=== PATIENT | male | born 1980 | race Two or more races ===

== ENCOUNTER 2017-04-16 07:43 | Emergency (ER) | payer MEDICARE, MEDICAID ==
[2017-04-16 07:55] VITALS: BP 154/95
--- NOTE | 2017-04-16 08:41 | EDM.PDOC ---
ED HPI GENERAL MEDICAL PROBLEM - General Chief Complaint: Respiratory Problem Stated Complaint: COUGH FOR 3X WKS Time Seen by Provider: 04/16/17 07:55 Source of Information: Reports: Patient History Limitations: Reports: No Limitations - History of Present Illness INITIAL COMMENTS - FREE TEXT/NARRATIVE: 37-year-old male with a persistent cough for 3 weeks, worsening to the point where he is having difficulty eating because he coughs so hard he vomits. No fevers or chills, no significant production. He is smoking. No exposure to someone else with similar symptoms. No recent travel. Onset: Gradual (Over the past 3 weeks) Severity: Moderate Associated Symptoms: Reports: Nausea/Vomiting, Shortness of Breath. Denies: Confusion, Chest Pain, Fever/Chills, Weakness - Related Data Allergies Allergy/AdvReac Type Severity Reaction Status Date / Time tramadol Allergy Mild Rash Verified 08/08/14 01:56 *Another pain medication Allergy Rash Uncoded 08/08/14 01:56 Home Meds: Home Meds Brimonidine Tartrate 1 drop EYEBOTH BID 08/08/14 [History] Ibuprofen 800 mg PO TID PRN 08/08/14 [History] Latanoprost 1 drop EYEBOTH DAILY 08/08/14 [History] Timolol Maleate 1 drop EYEBOTH BID 08/08/14 [History] Methocarbamol [Methocarbamol] 500 mg PO ASDIRECTED PRN 04/16/17 [History] Past Medical History HEENT History: Reports: Glaucoma, Impaired Vision, Other (See Below) 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 Respiratory History: Reports: Asthma Gastrointestinal History: Reports: GERD Musculoskeletal History: Reports: Back Pain, Chronic, Fracture Neurological History: Reports: Concussion, Head Trauma Psychiatric History: Reports: ADHD, PTSD - Past Surgical History HEENT Surgical History: Reports: Oral Surgery Other Musculoskeletal Surgeries/Procedures:: partial amputation of the left arm Social & Family History - Tobacco Use Smoking Status *Q: Current Every Day Smoker Years of Tobacco use: 34 Packs/Tins Daily: 0.2 Used Tobacco, but Quit: No Second Hand Smoke Exposure: No - Caffeine Use Caffeine Use: Reports: Coffee, Energy Drinks, Soda, Tea - Alcohol Use Days Per Week of Alcohol Use: 0 - Recreational Drug Use Recreational Drug Use: No ED ROS GENERAL - Review of Systems Review Of Systems: See Below Constitutional: Reports: Malaise. Denies: Fever, Chills HEENT: Denies: Throat Pain Respiratory: Reports: Shortness of Breath, Cough. Denies: Sputum Cardiovascular: Denies: Chest Pain GI/Abdominal: Reports: Nausea, Vomiting. Denies: Abdominal Pain Skin: Reports: No Symptoms Neurological: Denies: Headache ED EXAM, GENERAL - Physical Exam Exam: See Below Exam Limited By: No Limitations General Appearance: Alert, No Apparent Distress Throat/Mouth: Other (Advanced dental decay) Respiratory/Chest: No Respiratory Distress, Lungs Clear, Other (Despite clear lungs he did have several intense coughing spells while in the emergency room) Cardiovascular: Regular Rate, Rhythm Neurological: Alert, Oriented Skin Exam: Warm, Dry Course - Vital Signs Last Recorded V/S: Last Vital Signs Temp 97.0 F 04/16/17 07:50 Pulse 68 04/16/17 07:50 Resp 18 04/16/17 07:50 BP 154/95 H 04/16/17 07:50 Pulse Ox 96 04/16/17 07:50 - Orders/Labs/Meds Orders: Active Orders 24 hr Category Date Time Status Chest 2V [CR] Routine Exams 04/16/17 08:16 Taken - Re-Assessments/Exams Free Text/Narrative Re-Assessment/Exam: 04/16/17 08:39 A two-view chest x-ray was obtained which is normal. Explained to the patient that he has lingering bronchitis, it may be atypical, viral, or even allergy related. I'm going to supply him with some benzonatate Perles for cough suppression, put him on 60 mg of prednisone daily for 5 consecutive days and a course of Zithromax. Encouraged him to decrease his smoking and recheck in 4-5 days if not improving satisfactorily. Departure - Departure Time of Disposition: 08:44 Disposition: Home, Self-Care 01 Condition: Good Clinical Impression: Bronchitis - Discharge Information Instructions: Acute Bronchitis, [id number] Referrals: PCP,None [Primary Care Provider] - Forms: ED Department Discharge Care Plan Goals: Take 6 pills of prednisone with your first meal daily for 5 days in a row. Take the Zithromax as prescribed and the cough suppressant pills as needed. Consider rechecking in 4-6 days if not improving satisfactorily. - My Orders Last 24 Hours: My Active Orders 04/16/17 08:16 Chest 2V [CR] Routine - Assessment/Plan Last 24 Hours: My Active Orders 04/16/17 08:16 Chest 2V [CR] Routine
--- NOTE | 2017-04-18 08:58 | CR ---
Chest 2V HISTORY: Dyspnea. COMPARISON: None FINDINGS: Cardiac size and pulmonary vessels normal. There are no infiltrates or effusions. No pneumo thorax. The osseous structures appear normal. IMPRESSION: No acute pulmonary disease.
== END 2017-04-16 08:44 | disposition home or self-care (01) ==
LOC: JP.ED 07:43
DX: J40 Bronchitis, not specified as acute or chronic (principal); J45.909 Unspecified asthma, uncomplicated; K21.9 Gastro-esophageal reflux disease without esophagitis; F90.9 Attention-deficit hyperactivity disorder, unspecified type; F43.10 Post-traumatic stress disorder, unspecified; F17.210 Nicotine dependence, cigarettes, uncomplicated; Z79.899 Other long term (current) drug therapy; Z88.5 Allergy status to narcotic agent
CPT/HCPCS: 71020; 71020-26; 99283; 99284

== ENCOUNTER 2017-05-01 08:38 | Emergency (ER) | payer MEDICARE, MEDICAID ==
[2017-05-01 08:53] VITALS: BP 143/101
--- NOTE | 2017-05-01 09:26 | EDM.PDOC ---
ED HPI GENERAL MEDICAL PROBLEM - General Chief Complaint: Respiratory Problem Stated Complaint: COUGH Time Seen by Provider: 05/01/17 08:58 Source of Information: Reports: Patient, Old Records, RN Notes Reviewed History Limitations: Reports: No Limitations - History of Present Illness INITIAL COMMENTS - FREE TEXT/NARRATIVE: 37-year-old gentleman presents emergency department today for complaint of cough , he has had cough for now 6 weeks he has been to the emergency department and to his primary care provider for multiple visits of this cough review of the past shows on 16 April was evaluated emergency department at which time he received a chest x-ray which was negative azithromycin and prednisone, his cough continued was evaluated on 04-20 by primary care started on Symbicort and albuterol, continued having difficulty with cough to the point of being short of breath secondary to the cough and shortness of breath on exertion was reevaluated on 04-26 and primary care given another 5 day course of prednisone in combination with Claritin he presents today with ongoing cough no significant sputum production no fevers or chills no chest pain no GI symptomatology he has heard wheezing in the past but the cough will be so intense at times he'll be close to emesis and is extremely short of breath. He does have a past medical history of exercise- induced asthma, gastroesophageal reflux disease controlled with omeprazole - Related Data Allergies Allergy/AdvReac Type Severity Reaction Status Date / Time tramadol Allergy Mild Rash Verified 08/08/14 01:56 *Another pain medication Allergy Rash Uncoded 08/08/14 01:56 Home Meds: Home Meds Brimonidine Tartrate 1 drop EYEBOTH BID 08/08/14 [History] Ibuprofen 800 mg PO TID PRN 08/08/14 [History] Latanoprost 1 drop EYEBOTH DAILY 08/08/14 [History] Timolol Maleate 1 drop EYEBOTH BID 08/08/14 [History] Methocarbamol [Methocarbamol] 500 mg PO ASDIRECTED PRN 04/16/17 [History] Past Medical History HEENT History: Reports: Glaucoma, Impaired Vision, Other (See Below) 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 Respiratory History: Reports: Asthma Gastrointestinal History: Reports: GERD Musculoskeletal History: Reports: Back Pain, Chronic, Fracture Neurological History: Reports: Concussion, Head Trauma Psychiatric History: Reports: ADHD, PTSD - Past Surgical History HEENT Surgical History: Reports: Oral Surgery Other Musculoskeletal Surgeries/Procedures:: partial amputation of the left arm Social & Family History - Tobacco Use Smoking Status *Q: Heavy Tobacco Smoker Years of Tobacco use: 20 Packs/Tins Daily: 0.5 Used Tobacco, but Quit: No Second Hand Smoke Exposure: No - Caffeine Use Caffeine Use: Reports: Coffee, Energy Drinks, Soda - Alcohol Use Days Per Week of Alcohol Use: 0 - Recreational Drug Use Recreational Drug Use: No ED ROS GENERAL - Review of Systems Review Of Systems: See Below Constitutional: Denies: Fever, Chills HEENT: Reports: No Symptoms Respiratory: Reports: Shortness of Breath, Wheezing, Cough. Denies: Sputum Cardiovascular: Reports: No Symptoms GI/Abdominal: Reports: No Symptoms : Reports: No Symptoms Musculoskeletal: Reports: No Symptoms Skin: Reports: No Symptoms ED EXAM, GENERAL - Physical Exam Exam: See Below Free Text/Narrative:: General: Male, not in any distress, alert and oriented x3 HEENT: head is atraumatic normocephalic, eyes pupils equal round sclera clear no conjunctivitis appreciated. Ears tympanic membranes clear and blum landmarks and light reflex are present bilaterally canals are clear. Nose no septal deviation, nares are clear, no blood present. Mouth mucosa is moist and pink no erythema or exudate noted in soft palate, tongue is midline uvula is midline , dentition is poor. Neck: Supple no thyromegaly no tracheal deviation. Nodes: Cervical nodes subclavicular nodes nontender no palpable lymphadenopathy noted. Lungs: clear to auscultation bilaterally with symmetrical respirations, no adventitious noise appreciated. CV: Regular rate and rhythm S1 and S2 appreciated no murmurs rubs or gallops noted. Abdomen: Soft, nontender, no palpable masses or organomegaly appreciated, no distention no guarding bowel sounds are present,. Neuro: Cranial nerves II through XII grossly intact Skin: Warm and dry, intact Course - Vital Signs Last Recorded V/S: Last Vital Signs Temp 96.3 F 05/01/17 08:52 Pulse 61 05/01/17 08:52 Resp 18 05/01/17 08:52 BP 143/101 H 05/01/17 08:52 Pulse Ox 97 05/01/17 08:52 - Orders/Labs/Meds Orders: Active Orders 24 hr Category Date Time Status B PERTUSSIS IGG/M/A AB [REF] Routine Lab 05/01/17 09:22 Received Labs: Laboratory Tests 05/01/17 05/01/17 05/01/17 Range/Units 09:22 09:22 09:22 WBC 9.5 (4.5-11.0) K/uL RBC 5.09 (4.30-5.90) M/uL Hgb 14.7 (12.0-15.0) g/dL Hct 43.4 (40.0-54.0) % MCV 85 (80-98) fL MCH 29 (27-31) pg MCHC 34 (32-36) % Plt Count 358 (150-400) K/uL Neut % (Auto) 55 (36-66) % Lymph % (Auto) 33 (24-44) % [place] % (Auto) 9 H (2-6) % Eos % (Auto) 2 (2-4) % Baso % (Auto) 1 (0-1) % Sodium 142 (140-148) mmol/L Potassium 3.8 (3.6-5.2) mmol/L Chloride 106 (100-108) mmol/L Carbon Dioxide 29 (21-32) mmol/L Anion Gap 7.2 (5.0-14.0) mmol/L BUN 19 H D (7-18) mg/dL Creatinine 1.0 (0.8-1.3) mg/dL Est Cr Clr Drug Dosing 124.99 mL/min Estimated GFR (MDRD) > 60 (>60) Glucose 112 H (74-106) mg/dL Lactic Acid 1.4 (0.4-2.0) mmol/L Calcium 8.6 (8.5-10.1) mg/dL Total Bilirubin 0.5 (0.2-1.0) mg/dL AST 16 (15-37) U/L ALT 33 (12-78) U/L Alkaline Phosphatase 82 (46-116) U/L C-Reactive Protein 1.35 H (0.0-0.3) mg/dL Total Protein 7.5 (6.4-8.2) g/dL Albumin 3.4 (3.4-5.0) g/dL Globulin 4.1 H (2.3-3.5) g/dL Albumin/Globulin Ratio 0.8 L (1.2-2.2) Departure - Departure Time of Disposition: 11:26 Disposition: Home, Self-Care 01 Condition: Good Clinical Impression: Cough - Discharge Information Referrals: Adelaide Sandoval PA [Primary Care Provider] - Forms: ED Department Discharge Additional Instructions: Use the Robitussin before meals as needed to help suppress the cough, the results of your pertussis blood work should be available in 7-10 days. Please followup with your primary care provider in 7-10 days if not better, please call return to the emergency department with worsening of symptoms. - My Orders Last 24 Hours: My Active Orders 05/01/17 09:22 B PERTUSSIS IGG/M/A AB [REF] Routine - Assessment/Plan Last 24 Hours: My Active Orders 05/01/17 09:22 B PERTUSSIS IGG/M/A AB [REF] Routine Plan: Assessment Acuity = acute Site and laterality = chronic cough, again the patient known history of asthma exercise-induced and gastroesophageal reflux disease Etiology = unclear etiology suspicious for pertussis Manifestations = none Location of injury = Home Lab values = CBC, CMP unremarkable, pertussis pending, chest x-ray and CT scan of the chest no contrast also unremarkable Plan I did review lab work with him the pertussis blood work will be back in 1 week he has had a trial course of azithromycin prescription written for codeine guaifenesin combination 10 mL by mouth every 4-6 hours when necessary 250 mL bottle, will be in contact with him after the results return counseled him on the length of the cough due to pertussis infection, follow-up with primary care in 7-10 days if no improvement Patient was in agreement with the plan all questions were answered, they were instructed to return to the emergency department or call for worsening symptoms. This note was dictated using [employer] voice recognition software please call with any questions.
--- NOTE | 2017-05-01 09:37 | CR ---
Chest 2V INDICATION: cough FINDINGS: Comparison 04/16/2017. No change. Negative chest.
--- NOTE | 2017-05-01 10:56 | CT ---
Chest wo Cont Total DLP 610 mGycm. INDICATION: Chronic cough COMPARISON: X-ray from earlier today. FINDINGS: Mild dependent atelectasis in the lung bases. No evidence for pulmonary nodule or focal inf iltrate. No interstitial edema. Old right granulomatous infection. No adenopathy. Adrenal glands are negative. Exam otherwise unremarkable. IMPRESSION: Negative CT of the chest.
[2017-05-05 07:54] LABS: B. PERTUSSIS IGA AB 1.3 index (0.0-0.9); B. PERTUSSIS IGM AB <1.0 index (0.0-0.9)
== END 2017-05-01 11:44 | disposition home or self-care (01) ==
LOC: JP.ED 08:38
DX: R05 Cough (principal); J45.909 Unspecified asthma, uncomplicated; K21.9 Gastro-esophageal reflux disease without esophagitis; F17.210 Nicotine dependence, cigarettes, uncomplicated; Z89.202 Acquired absence of left upper limb, unspecified level; Z98.818 Other dental procedure status; Z79.899 Other long term (current) drug therapy; Z88.5 Allergy status to narcotic agent; Z88.6 Allergy status to analgesic agent
CPT/HCPCS: 36415; 71020; 71020-26; 71250; 71250-26; 80053; 83605; 85025; 86140; 86615; 86615-59; 99283; 99284-25

== ENCOUNTER 2017-09-27 15:20 | Emergency (ER) | payer MEDICARE, MEDICAID ==
[2017-09-27] MEDS ORDERED: Acetaminophen 325 MG Tab PO ONE (16:05)
[2017-09-27] MEDS ORDERED: Oseltamivir 75 MG Cap PO ONE (16:26)
[2017-09-27] MEDS ORDERED: Codeine/guaiFENesin 100mg-10 MG/5 ML Syrup 10 ML Cup PO ONE (16:29)
--- NOTE | 2017-09-27 16:29 | EDM.PDOC ---
ED HPI GENERAL MEDICAL PROBLEM - General Chief Complaint: General Stated Complaint: DIZZY / VOMITING / FEVER Time Seen by Provider: 09/27/17 16:26 Source of Information: Reports: Patient, Family, RN Notes Reviewed History Limitations: Reports: No Limitations - History of Present Illness INITIAL COMMENTS - FREE TEXT/NARRATIVE: 37-year-old gentleman presents to the emergency department today complaint of fever, he does have sick members in the family household complaints of a cough he is been ill for about 24 hours he did not receive a flu shot this year Generalized Pain Score (Numeric/FACES): 2 - Related Data Allergies Allergy/AdvReac Type Severity Reaction Status Date / Time tramadol Allergy Mild Rash Verified 08/08/14 01:56 *Another pain medication Allergy Rash Uncoded 08/08/14 01:56 Home Meds: Home Meds Brimonidine Tartrate 1 drop EYEBOTH BID 08/08/14 [History] Ibuprofen 800 mg PO TID PRN 08/08/14 [History] Latanoprost 1 drop EYEBOTH DAILY 08/08/14 [History] Timolol Maleate 1 drop EYEBOTH BID 08/08/14 [History] Methocarbamol [Methocarbamol] 500 mg PO ASDIRECTED PRN 04/16/17 [History] Budesonide/Formoterol [Symbicort 160-4.5 MCG] 09/27/17 [History] tiZANidine [Zanaflex] 09/27/17 [History] Past Medical History HEENT History: Reports: Glaucoma, Impaired Vision, Other (See Below) 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 Respiratory History: Reports: Asthma Gastrointestinal History: Reports: GERD Musculoskeletal History: Reports: Back Pain, Chronic, Fracture Neurological History: Reports: Concussion, Head Trauma Psychiatric History: Reports: ADHD, PTSD - Past Surgical History HEENT Surgical History: Reports: Oral Surgery Other Musculoskeletal Surgeries/Procedures:: partial amputation of the left arm Social & Family History - Tobacco Use Smoking Status *Q: Heavy Tobacco Smoker Years of Tobacco use: 10 Packs/Tins Daily: 1 Used Tobacco, but Quit: No Second Hand Smoke Exposure: No - Caffeine Use Caffeine Use: Reports: Coffee, Energy Drinks, Soda - Alcohol Use Days Per Week of Alcohol Use: 0 - Recreational Drug Use Recreational Drug Use: No ED ROS GENERAL - Review of Systems Review Of Systems: See Below Constitutional: Reports: Fever, Chills, Weakness HEENT: Reports: No Symptoms Respiratory: Reports: Shortness of Breath, Cough. Denies: Wheezing, Sputum Cardiovascular: Reports: Chest Pain GI/Abdominal: Reports: No Symptoms : Reports: No Symptoms Musculoskeletal: Reports: No Symptoms Skin: Reports: No Symptoms Neurological: Reports: No Symptoms ED EXAM, GENERAL - Physical Exam Exam: See Below Free Text/Narrative:: General: Male, ill-appearing, alert and oriented x3 HEENT: head is atraumatic normocephalic, eyes pupils equal round reactive to light, sclera clear no conjunctivitis appreciated. Ears blocked by cerumen bilaterally. Nose no septal deviation, nares are clear, no blood present. Mouth mucosa is moist and pink no erythema or exudate noted in soft palate, tongue is midline uvula is midline, dentition is intact. Neck: Supple no thyromegaly no tracheal deviation. Nodes: Cervical nodes subclavicular nodes nontender no palpable lymphadenopathy noted. Lungs: clear to auscultation bilaterally with symmetrical respirations, no adventitious noise appreciated. CV: Regular rate and rhythm S1 and S2 appreciated no murmurs rubs or gallops noted. Abdomen: Soft, nontender, no palpable masses or organomegaly appreciated, no distention no guarding bowel sounds are present, . Neuro: Cranial nerves II through XII grossly intact Skin: Warm and dry, intact Extremities: No lower extremity edema appreciated, Course - Vital Signs Last Recorded V/S: Last Vital Signs Temp 216.7 F H 09/27/17 16:52 Pulse 108 H 09/27/17 17:16 Resp 20 09/27/17 15:42 BP 108/67 09/27/17 17:16 Pulse Ox 95 09/27/17 17:16 - Orders/Labs/Meds Orders: Active Orders 24 hr Category Date Time Status Chest 1V Frontal [CR] Urgent Exams 09/27/17 16:25 Taken Labs: Laboratory Tests 09/27/17 09/27/17 09/27/17 Range/Units 16:50 16:50 16:50 WBC 4.6 (4.5-11.0) K/uL RBC 5.08 (4.30-5.90) M/uL Hgb 14.6 (12.0-15.0) g/dL Hct 42.4 (40.0-54.0) % MCV 84 (80-98) fL MCH 29 (27-31) pg MCHC 34 (32-36) % Plt Count 261 (150-400) K/uL Neut % (Auto) 74 H (36-66) % Lymph % (Auto) 7 L (24-44) % [place] % (Auto) 19 H (2-6) % Eos % (Auto) 0 L (2-4) % Baso % (Auto) 1 (0-1) % Sodium 138 L (140-148) mmol/L Potassium 3.7 (3.6-5.2) mmol/L Chloride 104 (100-108) mmol/L Carbon Dioxide 23 (21-32) mmol/L Anion Gap 14.7 H (5.0-14.0) mmol/L BUN 18 (7-18) mg/dL Creatinine 1.3 (0.8-1.3) mg/dL Est Cr Clr Drug Dosing 93.66 mL/min Estimated GFR (MDRD) > 60 (>60) Glucose 107 H (74-106) mg/dL Lactic Acid 1.7 (0.4-2.0) mmol/L Calcium 9.0 (8.5-10.1) mg/dL Total Bilirubin 0.8 D (0.2-1.0) mg/dL AST 26 (15-37) U/L ALT 41 (12-78) U/L Alkaline Phosphatase 77 (46-116) U/L Total Protein 6.9 (6.4-8.2) g/dL Albumin 3.9 (3.4-5.0) g/dL Globulin 3.0 (2.3-3.5) g/dL Albumin/Globulin Ratio 1.3 (1.2-2.2) Meds: Medications Discontinued Medications Generic Name Dose Route Start Last Admin Trade Name Freq PRN Reason Stop Dose Admin Acetaminophen 650 mg 09/27/17 16:05 09/27/17 16:22 Tylenol PO 09/27/17 16:06 650 mg NOW ONE Administration Guaifenesin/Codeine Phosphate 10 ml 09/27/17 16:29 09/27/17 16:36 Robitussin Ac PO 09/27/17 16:30 10 ml ONETIME ONE Administration Oseltamivir Phosphate 75 mg 09/27/17 16:26 09/27/17 16:36 Tamiflu PO 09/27/17 16:27 75 mg ONETIME ONE Administration Departure - Departure Time of Disposition: 18:25 Disposition: Home, Self-Care 01 Condition: Good Clinical Impression: Influenza due to influenza virus, type A, human - Discharge Information Referrals: Adelaide Sandoval PA [Primary Care Provider] - Forms: ED Department Discharge Additional Instructions: Use the Robitussin-AC as needed to help suppress the cough, continue to use Tylenol Motrin as needed help suppress the fever, Please followup with your primary care provider in 3-5 days if not better, please call return to the emergency department with worsening of symptoms. - My Orders Last 24 Hours: My Active Orders 09/27/17 16:25 Chest 1V Frontal [CR] Urgent - Assessment/Plan Last 24 Hours: My Active Orders 09/27/17 16:25 Chest 1V Frontal [CR] Urgent Plan: Assessment Acuity = acute Site and laterality = flu Etiology = influenza type A Manifestations = fever, body aches Location of injury = Home Lab values = CBC, CMP, lactic acid all within normal limits chest x-ray I did review films myself I cannot appreciate any acute process, the official read from radiology is pending Plan He declined Tamiflu, treated with Robitussin-AC for the cough Tylenol Motrin as needed for fever control follow up with primary care 3-5 days if no improvement This note was dictated using [employer] voice recognition software please call with any questions on syntax or [email or web address].
[2017-09-27 17:24] VITALS: BP 108/67
--- NOTE | 2017-09-28 08:32 | CR ---
Chest 1V Frontal HISTORY: fever COMPARISON: 05/01/2017 FINDINGS: Portable chest, 1627 hours. Lungs appear clear and normally aerated. Cardiomediastinal silhouette is within normal limits. No vas cular redistribution or pleural fluid can be seen. Bony structures and soft tissues are unremarkable. IMPRESSION: No acute chest abnormality or significant interval change is identified.
== END 2017-09-27 18:36 | disposition home or self-care (01) ==
LOC: JP.ED 15:20
DX: J10.1 Influenza due to other identified influenza virus with other respiratory manifestations (principal); F17.210 Nicotine dependence, cigarettes, uncomplicated; Z88.5 Allergy status to narcotic agent; Z79.899 Other long term (current) drug therapy
CPT/HCPCS: 36415; 71045; 80053; 83605; 85025; 87804; 99284; A9270

== ENCOUNTER 2017-11-22 07:24 | Emergency (ER) | payer MEDICARE, MEDICAID ==
[2017-11-22 07:47] VITALS: BP 147/87
[2017-11-22] MEDS ORDERED: Ondansetron 4 MG/2 ML SDV IVPUSH ONE ×2 (08:01→11:29)
[2017-11-22] MEDS: Sodium Chloride 0.9% 1,000 ML IV SCH ×2 (08:11→09:14)
[2017-11-22] MEDS ORDERED: HYDROmorphone 0.5 MG/0.5 ML Syringe IVPUSH ONE (08:37)
--- NOTE | 2017-11-22 08:38 | EDM.PDOC ---
ED HPI GENERAL MEDICAL PROBLEM - General Chief Complaint: Fever Stated Complaint: HIGH TEMP/SICK FOR 2 DAYS Time Seen by Provider: 11/22/17 08:34 Source of Information: Reports: Patient History Limitations: Reports: No Limitations - History of Present Illness INITIAL COMMENTS - FREE TEXT/NARRATIVE: pt has been having abdomanal pain and marked vomiting for the past 2 days. Onset: Other ( pt has been ill for the past 2 days. ) Duration: Day(s): Location: Reports: Abdomen Associated Symptoms: Reports: Fever/Chills, Loss of Appetite, Nausea/Vomiting, Other ( shaking chills. ) - Related Data Allergies Allergy/AdvReac Type Severity Reaction Status Date / Time tramadol Allergy Mild Rash Verified 08/08/14 01:56 *Another pain medication Allergy Rash Uncoded 08/08/14 01:56 Home Meds: Home Meds Ibuprofen 800 mg PO TID PRN 08/08/14 [History] Latanoprost 1 drop EYEBOTH DAILY 08/08/14 [History] Timolol Maleate 1 drop EYEBOTH BID 08/08/14 [History] Methocarbamol 500 mg PO ASDIRECTED PRN 04/16/17 [History] Budesonide/Formoterol [Symbicort 160-4.5 MCG] 1 puff INH ASDIRECTED PRN [History] Past Medical History HEENT History: Reports: Glaucoma, Impaired Vision, Other (See Below) 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 Respiratory History: Reports: Asthma Gastrointestinal History: Reports: GERD Musculoskeletal History: Reports: Back Pain, Chronic, Fracture Neurological History: Reports: Concussion, Head Trauma Psychiatric History: Reports: ADHD, PTSD - Past Surgical History HEENT Surgical History: Reports: Oral Surgery Other Musculoskeletal Surgeries/Procedures:: partial amputation of the left arm Social & Family History - Tobacco Use Smoking Status *Q: Heavy Tobacco Smoker Years of Tobacco use: 34 Packs/Tins Daily: 1 Used Tobacco, but Quit: No Second Hand Smoke Exposure: No - Caffeine Use Caffeine Use: Reports: Coffee, Energy Drinks, Soda - Alcohol Use Days Per Week of Alcohol Use: 0 - Recreational Drug Use Recreational Drug Use: No ED ROS ENT - Review of Systems Review Of Systems: See Below Constitutional: Reports: Fever, Chills, Malaise, Decreased Appetite, Other ( vomiting) HEENT: Reports: No Symptoms Respiratory: Reports: Shortness of Breath Cardiovascular: Reports: No Symptoms Endocrine: Reports: No Symptoms GI/Abdominal: Reports: Abdominal Pain, Nausea, Vomiting : Reports: No Symptoms Musculoskeletal: Reports: No Symptoms Skin: Reports: No Symptoms ED EXAM, ENT - Physical Exam Exam: See Below Text/Narrative:: pt is actively vomiting at this point. He is having abdomanal pain at a level of a 7. He has not had alot of diarrhea. Exam Limited By: No Limitations General Appearance: Alert, Moderate Distress Ears: Normal TMs Nose: Normal Inspection Mouth/Throat: Normal Inspection Head: Atraumatic Neck: Normal Inspection Respiratory/Chest: No Respiratory Distress Cardiovascular: Regular Rate, Rhythm GI/Abdominal: Soft, Tender, Other (pt has sig tendernss in the rt lower quadrant. ) (Male) Exam: Normal Inspection Rectal (Males) Exam: Deferred Back: Normal Inspection Extremities: Normal Inspection Neurological: Alert, Oriented, Slow to Respond Psychiatric: Depressed Mood Course - Vital Signs Last Recorded V/S: Last Vital Signs Temp 38.0 C 11/22/17 11:49 Pulse 102 H 11/22/17 07:56 Resp 16 11/22/17 07:56 BP 147/87 H 11/22/17 07:56 Pulse Ox 96 11/22/17 07:56 - Orders/Labs/Meds Labs: Laboratory Tests 11/22/17 11/22/17 11/22/17 Range/Units 08:08 08:08 08:33 WBC 8.7 (4.5-11.0) K/uL RBC 5.07 (4.30-5.90) M/uL Hgb 14.6 (12.0-15.0) g/dL Hct 42.9 (40.0-54.0) % MCV 85 (80-98) fL MCH 29 (27-31) pg MCHC 34 (32-36) % Plt Count 281 (150-400) K/uL Neut % (Auto) 60 (36-66) % Lymph % (Auto) 24 (24-44) % [place] % (Auto) 15 H (2-6) % Eos % (Auto) 0 L (2-4) % Baso % (Auto) 1 (0-1) % Sodium 142 (140-148) mmol/L Potassium 3.6 (3.6-5.2) mmol/L Chloride 106 (100-108) mmol/L Carbon Dioxide 23 (21-32) mmol/L Anion Gap 13.2 (5.0-14.0) mmol/L BUN 14 (7-18) mg/dL Creatinine 1.1 (0.8-1.3) mg/dL Est Cr Clr Drug Dosing 113.63 mL/min Estimated GFR (MDRD) > 60 (>60) Glucose 120 H (74-106) mg/dL Calcium 8.4 L (8.5-10.1) mg/dL Total Bilirubin 0.6 (0.2-1.0) mg/dL AST 26 (15-37) U/L ALT 38 (12-78) U/L Alkaline Phosphatase 71 (46-116) U/L C-Reactive Protein 3.09 H (0.0-0.3) mg/dL Total Protein 7.5 (6.4-8.2) g/dL Albumin 3.9 (3.4-5.0) g/dL Globulin 3.6 H (2.3-3.5) g/dL Albumin/Globulin Ratio 1.1 L (1.2-2.2) Lipase (73-393) U/L Urine Color Urine Appearance Urine pH (4.5-8.0) Ur Specific [place] (1.008-1.030) Urine Protein (NEGATIVE) mg/dL Urine Glucose (UA) (NEGATIVE) mg/dL Urine Ketones (NEGATIVE) mg/dL Urine Occult Blood (NEGATIVE) Urine Nitrite (NEGAITVE) Urine Bilirubin (NEGATIVE) Urine Urobilinogen (NORMAL) mg/dL Ur Leukocyte Esterase (NEGATIVE) Urine RBC (0-5) Urine WBC (0-5) Ur Epithelial Cells Amorphous Sediment Urine Bacteria Urine Mucus 11/22/17 11/22/17 Range/Units 08:37 09:28 WBC (4.5-11.0) K/uL RBC (4.30-5.90) M/uL Hgb (12.0-15.0) g/dL Hct (40.0-54.0) % MCV (80-98) fL MCH (27-31) pg MCHC (32-36) % Plt Count (150-400) K/uL Neut % (Auto) (36-66) % Lymph % (Auto) (24-44) % [place] % (Auto) (2-6) % Eos % (Auto) (2-4) % Baso % (Auto) (0-1) % Sodium (140-148) mmol/L Potassium (3.6-5.2) mmol/L Chloride (100-108) mmol/L Carbon Dioxide (21-32) mmol/L Anion Gap (5.0-14.0) mmol/L BUN (7-18) mg/dL Creatinine (0.8-1.3) mg/dL Est Cr Clr Drug Dosing mL/min Estimated GFR (MDRD) (>60) Glucose (74-106) mg/dL Calcium (8.5-10.1) mg/dL Total Bilirubin (0.2-1.0) mg/dL AST (15-37) U/L ALT (12-78) U/L Alkaline Phosphatase (46-116) U/L C-Reactive Protein (0.0-0.3) mg/dL Total Protein (6.4-8.2) g/dL Albumin (3.4-5.0) g/dL Globulin (2.3-3.5) g/dL Albumin/Globulin Ratio (1.2-2.2) Lipase 111 (73-393) U/L Urine Color Yellow Urine Appearance Slightly cloudy Urine pH 6.5 (4.5-8.0) Ur Specific [place] 1.015 (1.008-1.030) Urine Protein Negative (NEGATIVE) mg/dL Urine Glucose (UA) Normal (NEGATIVE) mg/dL Urine Ketones Negative (NEGATIVE) mg/dL Urine Occult Blood Negative (NEGATIVE) Urine Nitrite Negative (NEGAITVE) Urine Bilirubin Small (NEGATIVE) Urine Urobilinogen Normal (NORMAL) mg/dL Ur Leukocyte Esterase Negative (NEGATIVE) Urine RBC 0-5 (0-5) Urine WBC 0-5 (0-5) Ur Epithelial Cells Not seen Amorphous Sediment Not seen Urine Bacteria Not seen Urine Mucus Moderate Meds: Medications Discontinued Medications Generic Name Dose Route Start Last Admin Trade Name Freq PRN Reason Stop Dose Admin Acetaminophen 1,000 mg 11/22/17 10:39 11/22/17 10:59 Tylenol PO 11/22/17 10:40 Not Given NOW ONE Acetaminophen 1,000 mg 11/22/17 10:45 11/22/17 10:57 Tylenol Extra Strength PO 11/22/17 10:46 1,000 mg ONETIME ONE Administration Hydromorphone HCl 0.5 mg 11/22/17 08:37 11/22/17 08:50 Dilaudid IVPUSH 11/22/17 08:38 0.5 mg ONETIME ONE Administration Sodium Chloride 1,000 mls @ 999 mls/hr 11/22/17 08:15 11/22/17 09:12 Normal Saline IV Infused ASDIRECTED RADHA Infusion Sodium Chloride 1,000 mls @ 999 mls/hr 11/22/17 08:45 11/22/17 09:17 Normal Saline IV 999 mls/hr ASDIRECTED RADHA Administration Sodium Chloride 89 mls @ 3.5 mls/sec 11/22/17 09:30 11/22/17 09:31 Normal Saline IV 3.5 mls/sec ASDIRECTED RADHA Administration Ibuprofen 600 mg 11/22/17 11:07 11/22/17 11:11 Motrin PO 11/22/17 11:08 600 mg ONETIME ONE Administration Iopamidol 150 ml 11/22/17 09:17 11/22/17 09:31 Isovue-300 (61%) IV 11/23/17 09:18 150 ml . DIRECTED PRN Administration RADIOLOGY EXAM Ondansetron HCl 4 mg 11/22/17 08:01 11/22/17 08:11 Zofran IVPUSH 11/22/17 08:02 4 mg ONETIME ONE Administration Ondansetron HCl 4 mg 11/22/17 11:29 11/22/17 11:46 Zofran IVPUSH 11/22/17 11:30 4 mg ONETIME ONE Administration - Re-Assessments/Exams Free Text/Narrative Re-Assessment/Exam: 11/22/17 11:53 pt hd a fever greater than 102 and was vomiting actively on arrival. He had a normal wbc. He had tenderness in the rt lower abdoman. He had a cat scan of the abdoman which did not ethan acute findings. He did have a nodule in the lingula which shold be followed in 6 weeks to 2 mon. He will see Corina swann for that. His temp is coming down and he is no longer vomiting. Departure - Departure Time of Disposition: 11:56 Disposition: Home, Self-Care 01 Condition: Fair Clinical Impression: Flu syndrome, Dehydration, Lung nodule - Discharge Information Instructions: Dehydration, Adult, [id number], Pulmonary Nodule, [id number] Referrals: Adelaide Swann PA [Primary Care Provider] - Forms: ED Department Discharge Care Plan Goals: clear liquid diet today, push fluids, zoforan 4 mg q6h prn for nausea, rtc if problems, follow up with Corina Swann in 6 wks-2mon regarding the lung nodule.
[2017-11-22] MEDS ORDERED: Sodium Chloride 0.9% 1,000 ML IV SCH (08:45)
[2017-11-22] MEDS ORDERED: Iopamidol 612 MG/ML 150 ML Bottle IV PRN (09:17)
--- NOTE | 2017-11-22 09:58 | CT ---
Abdomen Pelvis w Cont Total DLP 1069 mGycm. INDICATION: rt lower abdoman. COMPARISON: None. FINDINGS: Atelectasis in the lung bases. Focal opacity in the inferior lingula measuring 14 mm is ind eterminant. Normal appendix. Small fat-containing inguinal hernias. Liver, gallbladder, spleen, adren al glands, kidneys, and pancreas are unremarkable. Tiny esophageal hiatal hernia. Exam otherwise unre markable. IMPRESSION: 1. No acute findings in the abdomen or pelvis. 2. 14 mm focal opacity in the inferior lingula is indeterminant. Please see Annika criteria below for follow-up guidelines. Findings discussed in person with Dr. Neri at 9:55 AM on 11/22/2017. Solid nodules: Nodule size less than 6 mm * Single and multiple nodules in low risk patient: No routine follow-up * Single and multiple nodules in high risk patient:(S) CT at 12 months. Nodule size 6 to 8 mm * Single nodule in low risk patient: CT at 6-12 months, then consider CT at 18-24 months. * Multiple nodules in low risk patient: CT at 3-6 months, then consider CT at 18-24 months. * Single nodule in high risk patient: CT at 6-12 months, then CT at 18-24 months. * Multiple nodules in high risk patient: CT at 3-6 months, then CT at 18-24 months. Nodule size greater than 8 mm * Single nodule in both low and high risk patient: Consider CT, PET/CT, or tissue sampling at 3 scott hs. * Multiple nodules in low risk patient: CT at 3-6 months, then consider CT at 18-24 months. * Multiple nodules in high risk patient: CT at 3-6 months, then CT at 18-24 months. Subsolid nodules: * Nodule size less than 6 mm * Single groundglass, part solid: No routine follow-up. * Multiple: CT at 3-6 months. If stable consider CT at 2 and 4 years. * Nodule size greater than or equal to 6 mm. * Single groundglass: CT at 6-12 months to confirm persistence, then CT at every 2 years until 5 yea rs. * Single part solid: CT at 3-6 months to confirm persistence. If unchanged and solid component remai ns less than 6 mm, annual CT should be performed for 5 years. * Multiple: CT at 3-6 months. Subsequent management based on the most suspicious nodules. Implications for patient care 1. These guidelines applied to incidental nodules, which can be managed according to the specific rec ommendations. 2. These guidelines do not apply to patient's younger than 35 years, immunocompromised patients, or p atients with cancer. 3. For lung cancer screening, adherence to the existing [employer] lung CT scan sc reening reporting and data system (lung RADS )guidelines is recommended.
--- NOTE | 2017-11-22 10:21 | CR ---
Chest 2V INDICATION: sob, fever FINDINGS: Shallow inspiration accentuates heart size. No focal consolidation. The 14 mm focal opacity in the lingula seen on today's CT is not well-visualized. Exam otherwise unremarkable.
[2017-11-22] MEDS ORDERED: Acetaminophen 325 MG Tab PO ONE (10:39)
[2017-11-22] MEDS ORDERED: Acetaminophen 500 MG Tab PO ONE (10:45)
[2017-11-22] MEDS ORDERED: Ibuprofen 600 MG Tab PO ONE (11:07)
== END 2017-11-22 12:11 | disposition home or self-care (01) ==
LOC: JP.ED 07:24
DX: J11.1 Influenza due to unidentified influenza virus with other respiratory manifestations (principal); E86.0 Dehydration; R91.8 Other nonspecific abnormal finding of lung field; F17.210 Nicotine dependence, cigarettes, uncomplicated; Z88.6 Allergy status to analgesic agent
CPT/HCPCS: 36415; 71046; 74177; 80053; 81001; 83690; 85025; 86140; 87040; 87804; 96361; 96374; 96375; 96376; 99285; A9270; J1170; J2405; J7030; J7040

== ENCOUNTER 2022-03-13 13:41 | Emergency (ER) | payer MEDICARE, MEDICAID | END 2022-03-13 14:17 | disposition left against medical advice (07) | LOC: JP.ED 13:41 | DX: Z53.21 Procedure and treatment not carried out due to patient leaving prior to being seen by health care provider (principal) ==